=== PATIENT | male | born 1990 | race Two or more races ===

== ENCOUNTER 2019-07-14 17:06 | Emergency (ER) | payer MEDICAID, OTHER ==
[~2019-07-14] VITALS: Ht 180.3 cm; Wt 79.5 kg
[~2019-07-14 17:06] MED LIST: NOCURR
[2019-07-14] MEDS ORDERED: CeFAZolin 1 GM/DEXTROSE 50 ML IV ONE (17:30)
[2019-07-14] MEDS ORDERED: PERTUSS(ACELL),DIPH,TET VAC/PF 0.5 ML VIAL IM ONE (17:30)
[2019-07-14] MEDS ORDERED: ACETAMINOPHEN 500 MG TABLET PO ONE (19:00)
[2019-07-14 19:38] VITALS: BP 121/76
== END 2019-07-14 20:06 | disposition short-term general hospital (02) ==
LOC: EMS 17:07
DX: S01.312A Laceration without foreign body of left ear, initial encounter (principal); F17.210 Nicotine dependence, cigarettes, uncomplicated; Z88.0 Allergy status to penicillin; Y04.2XXA Assault by strike against or bumped into by another person, initial encounter; Y93.89 Activity, other specified; Y92.89 Other specified places as the place of occurrence of the external cause; Y99.8 Other external cause status
CPT/HCPCS: 90471; 90715; 96365; 99285; J0690